=== PATIENT | female | born 1995 | race Caucasian/White ===

== ENCOUNTER 2020-03-03 11:37 | Emergency (ER) | payer BC ==
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
== END 2020-03-03 12:45 | disposition home or self-care (01) ==
LOC: LL.ED 11:37
DX: M25.561 Pain in right knee (principal); F41.8 Other specified anxiety disorders; J45.909 Unspecified asthma, uncomplicated; Z71.6 Tobacco abuse counseling; Z88.1 Allergy status to other antibiotic agents
CPT/HCPCS: 73562-RT; 99283